=== PATIENT | female | born 1970 | race Caucasian/White ===

== ENCOUNTER 2016-10-16 15:28 | Emergency (ER) | payer OTHER ==
[~2016-10-16] VITALS: Ht 167.6 cm; Wt 78.2 kg
[2016-10-16 15:31] VITALS: BP 120/80; PULSE 77; RESP 20; O2SAT 99
--- NOTE | 2016-10-16 16:17 | ED.REPORT ---
HPI-Hand Prob/Inj Date of Service Oct 16, 2016 ED Provider: Isaac Chavez MD Patient is a 46 year old female who presents to the ED complaining of a R index finger laceration onset just prior to arrival. She was chiseling rock when she noticed her finger was cut. She is unsure if another chisel or a piece of rock cut her finger. She denies fever, nausea, numbness, weakness, or any other symptoms. Her last tetanus shot was in 2008 or 2009. She is allergic to penicillin. Nursing Notes Stated Complaint: R INDEX FINGER LACERATION Chief Complaint: Laceration Nursing Notes Reviewed: Yes Allergies: Coded Allergies: No Known Allergies (Unverified , 10/16/16) General Time Seen by Provider: 16:16 Chief Complaint Hand injury right Hx Obtained From: Patient Arrived By: Walk-in Onset Occurred: Just prior to arrival Immunizations: Tetanus w/in 5 - 10 yrs Past Medical History Past Medical History Healthy Denies: Asthma, Diabetes mellitus Past Surgical History Denies Smoking History Unknown if Ever Smoker Social History Drug Use: THC Ambulatory Status Independent Review of Systems Constitutional: Denies: Chills, Fever Musculoskeletal: Reports: Extremity pain (R index finger ) Neurologic: Denies: Numbness, Weakness Complete sys rev & neg: except as marked. GI: Denies: Nausea Physical Exam Initial Vital Signs Vital Signs (First) Date Time Temp Pulse Resp B/P Pulse Ox O2 Delivery O2 Flow Rate FiO2 10/16/16 15:31 36.5 77 20 120/80 99 Room Air Initial VS: Reviewed General/Constitutional: Well-developed, Well-nourished Head / Eyes: Atraumatic, Normocephalic Neck: Full range of motion Respiratory: No respiratory distress Cardiovascular: Intact distal pulses Skin: Warm, Dry Neurologic: Alert, Oriented, Nonfocal Psychiatric: Mood/affect normal, Behavior normal, Normal thought content Wrist / Hand: Neurologic intact, Vascular intact, Tendon function NL Right Hand: Positive: Deformity present laceration on R index finger over PIP joint Procedures Laceration Management Time: 16:46 Procedure Performed by: ED physician Consent / Setup / Site Prep: Informed consent provided, Consent from patient , Time-out performed, Hand hygiene observed Location of Wound: Ulnar aspect of right index finger over PIP joint, dorsally Wound Length: 1 cm (1.5) Local Anesthesia: Lidocaine 1% Digit Involved: Index finger right Wound Preparation: Normal saline Debridement: None Irrigation: Copious Foreign Body Explore / Removal: Explored for foreign body (None) Repair Skin: ___ O (4), Nylon # Sutures - Skin: 4 Suture Technique: Simple Post-Procedure / Complications: Antibiotic oint applied, Dressing applied, No complications, Condition improved, Patient stable Re-Eval/Medical Decision Re-Evaluation/Progress : Time of Eval: 16:46 Re-Evaluation/Progress Note: Sutured finger laceration and discussed wound care. Discussed plan for discharge. Patient understands and agrees with plan. All questions addressed at this time. Counseled Regarding: Diagnosis, Need for follow-up, When/why to return to ED Discharge & Departure Primary Impression: Laceration of finger of right hand Encounter type: initial encounter Qualified Code: S61.219A - Laceration without foreign body of unspecified finger without damage to nail, initial encounter Disposition: Home Discharge Condition All VS Reviewed: Yes Condition: Improved Patient Instructions: Finger Laceration (ED) Additional Instructions: Thank you for entrusting us with your care today. Follow up with your primary care physician or return to the emergency department in 7 days to have your sutures removed if you do not feel comfortable taking them out yourself. Follow the instructions provided to ensure proper healing of your wound. Tomorrow you may wash your finger with mild soap and water without scrubbing. Pat it dry and bandage it to avoid snagging. Keep it moist with antibiotic ointment. Scribe Attestation Portions of this note were transcribed by Nancy Simms. I, Dr. Chavez personally performed the history, physical exam and medical decision-making; I reviewed and confirmed the accuracy of the information in the transcribed note. Signed by: Nancy Simms 10/16/16, 1709 Isaac Chavez MD Oct 16, 2016 16:17 NANCY SIMMS Oct 16, 2016 17:04
[2016-10-16] MEDS ORDERED: Lidocaine 1% 50 mL Inj NERVEBLOCK ONE (16:35)
[2016-10-16 17:19] VITALS: BP 129/68; PULSE 79; RESP 17; O2SAT 98
== END 2016-10-16 17:07 | disposition home or self-care (01) ==
LOC: SED 15:28
DX: S61.210A Laceration without foreign body of right index finger without damage to nail, initial encounter (principal); W26.8XXA Contact with other sharp object(s), not elsewhere classified, initial encounter; Y92.9 Unspecified place or not applicable; Y93.89 Activity, other specified; Y99.8 Other external cause status; Z88.0 Allergy status to penicillin